=== PATIENT | female | born 1970 | race African-American/Black ===

== ENCOUNTER 2024-10-09 00:05 | Inpatient (IN) | payer OTHER, MEDICARE ==
[~2024-10-09] VITALS: Ht 162.6 cm; Wt 99.8 kg
[2024-10-09] MEDS ORDERED: AMLO10TA59 (01:31)
[2024-10-09] MEDS ORDERED: HYDR25TA4 (01:31)
[2024-10-09] MEDS ORDERED: CLON0.1T14 (01:31)
[2024-10-09] MEDS ORDERED: GLIP10TA11 (01:31)
[2024-10-09] MEDS ORDERED: METF850T (01:31)
[2024-10-09] MEDS ORDERED: SWABABLE VALVE TRANSFER SET EA MC ONE (01:55)
[2024-10-09] MEDS ORDERED: IV NORMAL SALINE 250 ML IV ONE (01:55)
[2024-10-09] MEDS ORDERED: IOHEXOL 300MG/ML 100 ML INFUS..BTL ONE (01:55)
[2024-10-09 02:07] LABS: BASOPHILS # (AUTO) 0.1 K/UL (0.0-0.2); BASOPHILS % (AUTO) 1.4 % (0.0-2.0); EOSINOPHILS # (AUTO) 0.1 K/uL (0.0-0.7); EOSINOPHILS % (AUTO) 1.6 % (0.0-7.0); HEMATOCRIT 33.9 % (31.2-41.9); HEMOGLOBIN 11.1 g/dL (10.9-14.3); LYMPHOCYTES # (AUTO) 2.1 K/uL (0.8-4.8); LYMPHOCYTES % (AUTO) 32.1 % (20.5-51.5); MEAN CORPUSCULAR HEMOGLOBIN 25.1 uug (24.7-32.8); MEAN CORPUSCULAR HGB CONC 33 g/dL (32.3-35.6); MEAN CORPUSCULAR VOLUME 76.3 fL (75.5-95.3); MONOCYTES # (AUTO) 0.6 K/uL (0.1-1.30); MONOCYTES % (AUTO) 9.5 % (0.0-11.0); NEUTROPHILS # (AUTO) 3.6 K/uL (1.8-8.9); NEUTROPHILS % (AUTO) 55.4 % (38.5-71.5); PLATELET COUNT (AUTO) 222 K/uL (179-408); RED BLOOD CELL COUNT(AUTO) 4.44 MIL/uL (3.63-4.92); RED CELL DISTRIBUTION WIDTH 15.9 % (12.3-17.7); WHITE BLOOD COUNT (AUTO) 6.5 K/uL (3.8-11.8)
[2024-10-09 02:45] LABS: ALANINE AMINOTRANSFERASE 35 U/L (14-59); ALBUMIN 3.4 g/dL (3.4-5.0); ALKALINE PHOSPHATASE 136 U/L (50-136); ASPARTATE AMINOTRANSFERASE 13 U/L (15-37); BILIRUBIN,DIRECT 0.1 mg/dL (0.0-0.2); BILIRUBIN,TOTAL 0.1 mg/dL (0.2-1.0); CARBON DIOXIDE 30 mmol/L (21-32); CHLORIDE 102 mmol/L (98-107); CREATININE 0.9 mg/dL (0.6-1.3); GLUCOSE 280 mg/dL (74-106); POTASSIUM 3.1 mmol/L (3.5-5.1); SODIUM SERUM 139 mmol/L (136-145); TOTAL PROTEIN, SERUM 7.2 g/dL (6.4-8.2); UREA NITROGEN, BLOOD 25 mg/dL (7-18)
[2024-10-09 03:54] LABS: *BILIRUBIN,URIN NEGATIVE (NEGATIVE); *BLOOD, URINE NEGATIVE (NEGATIVE); *CLARITY,URINE CLEAR (CLEAR); *COLOR,URINE YELLOW (YELLOW); *KETONES,URINE TRACE (NEGATIVE); *PROTEIN,URINE TRACE (NEGATIVE); *UROBILINOGEN,URINE 0.2 E.U./dl (NORMAL); LEUKOCYTE ESTERASE ,URINE NEGATIVE (NEGATIVE); NITRITE, URINE NEGATIVE (NEGATIVE); PH,URINE 6.5 (5.0-8.0)
[2024-10-09] MEDS ORDERED: ONDANSETRON 4 MG/2 ML VIAL ONE (04:04)
[2024-10-09] MEDS ORDERED: HYDROCORTISONE SOD SUCCINATE 100 MG/2 ML VIAL IV ONE (04:04)
[2024-10-09] MEDS ORDERED: HYDROMORPHONE 1 MG/1 ML DISP.SYRIN ONE ×2 (04:05→05:49)
[2024-10-09] MEDS ORDERED: diphenhydrAMINE 50 MG/1 ML VIAL ONE (04:05)
[2024-10-09 04:07] LABS: *AMPHETAMINE, URINE NEGATIVE (NEGATIVE); *BARBITURATE, URINE NEGATIVE (NEGATIVE); *BENZODIAZEPINE, URINE NEGATIVE (NEGATIVE); *CANNABINOID, URINE NEGATIVE (NEGATIVE); *COCCAINE, URINE NEGATIVE (NEGATIVE); *OPIATE, URINE POSITIVE (NEGATIVE); *PHENCYCLIDINE SCREEN,URINE NEGATIVE (NEGATIVE); FENTANYL, URINE NEGATIVE (NEGATIVE)
[2024-10-09] MEDS: diphenhydrAMINE 50 MG/1 ML VIAL IV ONE (04:09)
[2024-10-09] MEDS: HYDROMORPHONE 1 MG/1 ML DISP.SYRIN IV ONE ×2 (04:09→05:53)
[2024-10-09] MEDS: HYDROCORTISONE SOD SUCCINATE 100 MG/2 ML VIAL IV ONE (04:10)
[2024-10-09] MEDS: ONDANSETRON 4 MG/2 ML VIAL IV ONE (04:10)
[2024-10-09] MEDS ORDERED: FUROSEMIDE 40 MG/4 ML VIAL ONE (04:12)
[2024-10-09 04:16] LABS: UGLUCOSE 3+ (NEGATIVE)
[2024-10-09 04:17] LABS: BACTERIA,URINE FEW /HPF (NONE SEEN); RBC,URINE 0-3 /HPF (0-3); SQUAMOUS EPITHELIAL CELL,UR FEW /HPF (NONE SEEN); WBC,URINE NONE SEEN /HPF (0-3)
[2024-10-09] MEDS: FUROSEMIDE 40 MG/4 ML VIAL IV ONE (04:25)
[2024-10-09] MEDS ORDERED: LORAZEPAM 2 MG/1 ML VIAL ONE (05:31)
[2024-10-09] MEDS: LORAZEPAM 2 MG/1 ML VIAL IV ONE (05:36)
[2024-10-09] MEDS ORDERED: REMEDY ESSENTIAL ZINC PASTE 113 GM TP PRN (05:45)
[2024-10-09] MEDS ORDERED: INSULIN REGULAR, HUMAN 1000 UNIT/10 ML VIAL SQ SCH (06:00)
[2024-10-09] MEDS ORDERED: ATORVASTATIN 40 MG TABLET PO SCH (07:28)
[2024-10-09] MEDS: BLOOD SUGAR DIAGNOSTIC 1 EACH STRIP VI SCH ×2 (08:25→08:42)
[2024-10-09] MEDS: INSULIN REGULAR, HUMAN 1000 UNIT/10 ML VIAL SQ PRN (08:44)
[2024-10-09] MEDS ORDERED: DEXTROSE 50% 50 ML DISP.SYRIN IV PRN (08:45)
[2024-10-09] MEDS: CLOPIDOGREL 75 MG TABLET PO SCH (09:21)
[2024-10-09] MEDS: PANTOPRAZOLE SODIUM 40 MG VIAL IV SCH (09:21)
[2024-10-09] MEDS: ATORVASTATIN 40 MG TABLET PO ONE (09:26)
[2024-10-09] MEDS: POTASSIUM CHLORIDE 20 MEQ TAB.PRT.SR PO ONE (11:47)
[2024-10-09] MEDS ORDERED: AMLO10TA59 PO (11:55)
[2024-10-09] MEDS ORDERED: CLON0.1T PO (11:56)
[2024-10-09] MEDS ORDERED: GLIP10TA11 PO (11:56)
[2024-10-09] MEDS ORDERED: METF-441 PO (11:57)
[2024-10-09] MEDS ORDERED: HYDR25TA4 PO (11:57)
[2024-10-09] MEDS ORDERED: INSU100V10 SQ (11:58)
[2024-10-09] MEDS ORDERED: INSU100V11 SQ (11:58)
[2024-10-09] MEDS ORDERED: ALBU8HFA4 INH (11:59)
[2024-10-09 12:00] VITALS: BP 124/76; TEMP 98.5; O2SAT 99
[2024-10-09] MEDS ORDERED: LORA-259 PO (12:00)
[2024-10-09] MEDS ORDERED: DIPH25CA83 PO (12:01)
[2024-10-09] MEDS ORDERED: METO-358 PO (12:02)
[2024-10-09] MEDS ORDERED: LORA10CA PO (12:02)
[2024-10-09] MEDS ORDERED: HYDR50TA68 PO (12:03)
[2024-10-09] MEDS ORDERED: NYST15CR TP (12:04)
[2024-10-09] MEDS ORDERED: LIDO30CR47 TP (12:05)
[2024-10-09] MEDS: HYDROCODONE/APAP 10-325 MG TABLET PO PRN (12:06)
[2024-10-09] MEDS: ACETAMINOPHEN 325 MG TABLET PO PRN (15:19)
[2024-10-09] MEDS: LORAZEPAM 1 MG TABLET PO PRN (15:20)
[2024-10-09 15:55] LABS: BASOPHILS % (AUTO) 0.5 % (0.0-2.0); DIFFERENTIAL COMMENT 0; EOSINOPHILS % (AUTO) 0.3 % (0.0-7.0); HEMATOCRIT 30.9 % (31.2-41.9); HEMOGLOBIN 9.9 g/dL (10.9-14.3); LYMPHOCYTES # (AUTO) 1.8 K/uL (0.8-4.8); LYMPHOCYTES % (AUTO) 26.1 % (20.5-51.5); MEAN CORPUSCULAR HEMOGLOBIN 24.6 uug (24.7-32.8); MEAN CORPUSCULAR HGB CONC 32 g/dL (32.3-35.6); MEAN CORPUSCULAR VOLUME 76.6 fL (75.5-95.3); MONOCYTES # (AUTO) 0.7 K/uL (0.1-1.30); MONOCYTES % (AUTO) 10.2 % (0.0-11.0); NEUTROPHILS # (AUTO) 4.3 K/uL (1.8-8.9); NEUTROPHILS % (AUTO) 62.9 % (38.5-71.5); PLATELET COUNT (AUTO) 211 K/uL (179-408); RED BLOOD CELL COUNT(AUTO) 4.04 MIL/uL (3.63-4.92); WHITE BLOOD COUNT (AUTO) 6.8 K/uL (3.8-11.8)
[2024-10-09 15:58] LABS: CALCIUM 9.1 mg/dL (8.5-10.1); CREATININE 0.9 mg/dL (0.6-1.3); MAGNESIUM 1.6 mg/dL (1.8-2.4); PHOSPHOROUS 2.6 mg/dL (2.5-4.9); POTASSIUM 3.3 mmol/L (3.5-5.1)
[2024-10-09] MEDS ORDERED: ALBUTEROL SULFATE 8 GM HFA.AER.AD INH PRN (16:00)
[2024-10-09 16:11] VITALS: BP 159/90; TEMP 98.3; O2SAT 97
[2024-10-09] MEDS ORDERED: ALBUTEROL SULFATE 2.5 MG/3 ML NEBU NEB PRN (16:15)
[2024-10-09] MEDS: diphenhydrAMINE 25 MG CAP PO PRN (16:57)
[2024-10-09] MEDS: METFORMIN HCL 850 MG TABLET PO SCH (16:58)
[2024-10-09] MEDS: CLONIDINE HCL 0.1 MG TABLET PO SCH (16:59)
[2024-10-09] MEDS: NYSTATIN CREAM 30 GM TUBE TP SCH (16:59)
[2024-10-09 20:28] VITALS: BP 142/69; TEMP 98.2; O2SAT 98
[2024-10-10] MEDS: MORPHINE SULFATE 2 MG/1 ML DISP.SYRIN IV PRN (02:08)
[2024-10-10 04:08] VITALS: BP 189/71; TEMP 98.2; O2SAT 99
[2024-10-10] MEDS: INSULIN GLARGINE,HUM 300 UNITS/3 ML CARTRIDGE SQ SCH (06:32)
[2024-10-10 07:02] LABS: BASOPHILS % (AUTO) 0.4 % (0.0-2.0); EOSINOPHILS # (AUTO) 0.1 K/uL (0.0-0.7); EOSINOPHILS % (AUTO) 1.2 % (0.0-7.0); HEMATOCRIT 30.3 % (31.2-41.9); HEMOGLOBIN 9.9 g/dL (10.9-14.3); LYMPHOCYTES # (AUTO) 1.6 K/uL (0.8-4.8); LYMPHOCYTES % (AUTO) 31.9 % (20.5-51.5); MEAN CORPUSCULAR HGB CONC 33 g/dL (32.3-35.6); MEAN CORPUSCULAR VOLUME 76.9 fL (75.5-95.3); MONOCYTES # (AUTO) 0.5 K/uL (0.1-1.30); MONOCYTES % (AUTO) 10.4 % (0.0-11.0); NEUTROPHILS # (AUTO) 2.9 K/uL (1.8-8.9); NEUTROPHILS % (AUTO) 56.1 % (38.5-71.5); PLATELET COUNT (AUTO) 201 K/uL (179-408); RED BLOOD CELL COUNT(AUTO) 3.95 MIL/uL (3.63-4.92); RED CELL DISTRIBUTION WIDTH 15.9 % (12.3-17.7); WHITE BLOOD COUNT (AUTO) 5.2 K/uL (3.8-11.8)
[2024-10-10 07:05] LABS: DIFFERENTIAL COMMENT 1
[2024-10-10 07:11] LABS: CALCIUM 8.6 mg/dL (8.5-10.1); CREATININE 0.7 mg/dL (0.6-1.3); MAGNESIUM 1.5 mg/dL (1.8-2.4); PHOSPHOROUS 2.1 mg/dL (2.5-4.9); POTASSIUM 3.2 mmol/L (3.5-5.1)
[2024-10-10 07:30] VITALS: BP 168/88; TEMP 98.4; O2SAT 99
[2024-10-10] MEDS: hydrALAZINE HCL 50 MG TABLET PO SCH (09:04)
[2024-10-10] MEDS: POTASSIUM CHLORIDE 20 MEQ TAB.PRT.SR PO ONE (09:05)
[2024-10-10] MEDS: AMLODIPINE 10 MG TABLET PO SCH (09:06)
[2024-10-10] MEDS: METOPROLOL SUCCINATE XL 50 MG TAB.SR.24H PO SCH (09:06)
[2024-10-10] MEDS: MAGNESIUM SULFATE/D5W 100 ML IV SCH (09:08)
[2024-10-10 11:16] VITALS: BP 141/73; TEMP 98.2; O2SAT 94
[2024-10-10 15:03] VITALS: BP 121/59; TEMP 98.4; O2SAT 99
[2024-10-10] MEDS: NEUTRA PHOS PACKET PO ONE (15:48)
[2024-10-10] MEDS: ONDANSETRON 4 MG/2 ML VIAL IV PRN (17:43)
[2024-10-10 20:00] VITALS: BP 98/59; TEMP 97.5; O2SAT 100
[2024-10-10] MEDS: ATORVASTATIN 40 MG TABLET PO SCH (20:39)
[2024-10-11] VITALS: BP 161/86; TEMP 98; O2SAT 100
[2024-10-11 04:00] VITALS: BP 166/83; TEMP 98.4; O2SAT 98
[2024-10-11] MEDS: PANTOPRAZOLE SODIUM 40 MG TABLET.DR PO SCH (06:36)
[2024-10-11 06:49] LABS: BASOPHILS % (AUTO) 0.8 % (0.0-2.0); EOSINOPHILS # (AUTO) 0.1 K/uL (0.0-0.7); EOSINOPHILS % (AUTO) 1.8 % (0.0-7.0); HEMATOCRIT 34.1 % (31.2-41.9); HEMOGLOBIN 11.3 g/dL (10.9-14.3); LYMPHOCYTES # (AUTO) 1.9 K/uL (0.8-4.8); LYMPHOCYTES % (AUTO) 32.3 % (20.5-51.5); MEAN CORPUSCULAR HEMOGLOBIN 25.4 uug (24.7-32.8); MEAN CORPUSCULAR HGB CONC 33 g/dL (32.3-35.6); MEAN CORPUSCULAR VOLUME 76.8 fL (75.5-95.3); MONOCYTES # (AUTO) 0.4 K/uL (0.1-1.30); MONOCYTES % (AUTO) 6.7 % (0.0-11.0); NEUTROPHILS # (AUTO) 3.5 K/uL (1.8-8.9); NEUTROPHILS % (AUTO) 58.4 % (38.5-71.5); PLATELET COUNT (AUTO) 243 K/uL (179-408); RED BLOOD CELL COUNT(AUTO) 4.44 MIL/uL (3.63-4.92); RED CELL DISTRIBUTION WIDTH 16.3 % (12.3-17.7); WHITE BLOOD COUNT (AUTO) 5.9 K/uL (3.8-11.8)
[2024-10-11 07:01] LABS: CALCIUM 9.2 mg/dL (8.5-10.1); CREATININE 0.9 mg/dL (0.6-1.3); MAGNESIUM 1.8 mg/dL (1.8-2.4); PHOSPHOROUS 2.9 mg/dL (2.5-4.9); POTASSIUM 3.8 mmol/L (3.5-5.1)
[2024-10-11 07:03] LABS: DIFFERENTIAL COMMENT 1
[2024-10-11 07:48] VITALS: BP 123/90; TEMP 98.2; O2SAT 100
[2024-10-11] MEDS ORDERED: ATOR40TA PO (10:27)
[2024-10-11] MEDS ORDERED: CLOP75TA33 PO (10:27)
[2024-10-11 11:01] VITALS: BP 123/90; TEMP 97.6; O2SAT 100
[2024-10-11] MEDS: MORPHINE SULFATE 2 MG/1 ML DISP.SYRIN IV PRN (11:44)
[2024-10-11] MEDS: diphenhydrAMINE 50 MG/1 ML VIAL IV PRN (13:53)
[2024-10-11 15:10] VITALS: BP 143/84; TEMP 97.5; O2SAT 99
[2024-10-11 19:30] VITALS: BP 127/64; TEMP 97.8; O2SAT 98
[2024-10-11] MEDS: LOPERAMIDE HCL 2 MG CAPSULE PO PRN (20:55)
[2024-10-12 08:18] VITALS: BP 189/89; TEMP 98.4; O2SAT 100
[2024-10-12] MEDS ORDERED: MORPHINE SULFATE 4 MG/1 ML DISP.SYRIN IV PRN (14:00)
[2024-10-12] MEDS ORDERED: HYDR-3980 PO (14:43)
[2024-10-12 15:35] VITALS: BP 141/74; TEMP 97.6; O2SAT 100
[2024-10-13 07:49] VITALS: BP 183/96; TEMP 98.5; O2SAT 99
[2024-10-13 08:11] VITALS: BP 183/96
== END 2024-10-13 13:25 | disposition home or self-care (01) | DRG 47 ==
LOC: EDBD 00:20 → ER 00:20 → TELE3 07:20
PROVIDERS: ADMIT Nurse Practitioner Family; ATTEND Internal Medicine
PROC: 06HY33Z Insertion of Infusion Device into Lower Vein, Percutaneous Approach (ICD-10-PCS; principal; 2024-10-09)
DX: G45.9 Transient cerebral ischemic attack, unspecified (principal); D68.59 Other primary thrombophilia; I50.9 Heart failure, unspecified; I11.0 Hypertensive heart disease with heart failure; E04.2 Nontoxic multinodular goiter; E66.01 Morbid (severe) obesity due to excess calories; F41.9 Anxiety disorder, unspecified; R29.810 Facial weakness; Z68.37 Body mass index [BMI] 37.0-37.9, adult; G89.29 Other chronic pain; I25.2 Old myocardial infarction; I25.10 Atherosclerotic heart disease of native coronary artery without angina pectoris; Z95.5 Presence of coronary angioplasty implant and graft; Z79.02 Long term (current) use of antithrombotics/antiplatelets; R29.709 NIHSS score 9; Z88.6 Allergy status to analgesic agent; E87.6 Hypokalemia; F11.90 Opioid use, unspecified, uncomplicated; Z86.73 Personal history of transient ischemic attack (TIA), and cerebral infarction without residual deficits; F32.A Depression, unspecified; E11.65 Type 2 diabetes mellitus with hyperglycemia; Z74.09 Other reduced mobility
CPT/HCPCS: 36415; 70450; 70496; 71045; 83735; 84100; 84484; 85025; 85730; A4606; A4663; G0378; J1171; J1200; J1720; J1815; J1940; J2060; J2270; J2405; J2470; J3475; Q0163; Q9967

== ENCOUNTER 2025-01-28 13:13 | Inpatient (IN) | payer MEDICARE, OTHER ==
[~2025-01-28] VITALS: Ht 162.6 cm; Wt 102.3 kg
[~2025-01-28 13:13] MED LIST: ALBU8HFA4 INH; AMLO10TA59 PO; CLON0.1T PO; DIPH25CA83 PO; GLIP10TA11 PO; HYDR25TA4 PO; HYDR50TA68 PO; INSU100V10 SQ; INSU100V11 SQ; LIDO30CR47 TP; LORA-259 PO; LORA10CA PO; METF-441 PO; METO-358 PO; NYST15CR TP
[2025-01-28 14:12] LABS: BASOPHILS % (AUTO) 0.4 % (0.0-2.0); EOSINOPHILS # (AUTO) 0.1 K/uL (0.0-0.7); EOSINOPHILS % (AUTO) 1.9 % (0.0-7.0); HEMATOCRIT 32.5 % (31.2-41.9); HEMOGLOBIN 10.3 g/dL (10.9-14.3); LYMPHOCYTES # (AUTO) 1.2 K/uL (0.8-4.8); LYMPHOCYTES % (AUTO) 22.3 % (20.5-51.5); MEAN CORPUSCULAR HEMOGLOBIN 24.5 uug (24.7-32.8); MEAN CORPUSCULAR HGB CONC 32 g/dL (32.3-35.6); MEAN CORPUSCULAR VOLUME 77.2 fL (75.5-95.3); MONOCYTES # (AUTO) 0.6 K/uL (0.1-1.30); MONOCYTES % (AUTO) 10.4 % (0.0-11.0); NEUTROPHILS # (AUTO) 3.5 K/uL (1.8-8.9); PLATELET COUNT (AUTO) 153 K/uL (179-408); RED BLOOD CELL COUNT(AUTO) 4.21 MIL/uL (3.63-4.92); RED CELL DISTRIBUTION WIDTH 14.5 % (12.3-17.7); WHITE BLOOD COUNT (AUTO) 5.4 K/uL (3.8-11.8)
[2025-01-28 14:13] LABS: DIFFERENTIAL COMMENT 1
[2025-01-28 14:17] LABS: CALCIUM 8.8 mg/dL (8.5-10.1); CARBON DIOXIDE 25 mmol/L (21-32); CHLORIDE 108 mmol/L (98-107); CREATININE 0.7 mg/dL (0.6-1.3); GLUCOSE 212 mg/dL (74-106); POTASSIUM 3.3 mmol/L (3.5-5.1); SODIUM SERUM 142 mmol/L (136-145); UREA NITROGEN, BLOOD 25 mg/dL (7-18)
[2025-01-28 14:29] LABS: ALANINE AMINOTRANSFERASE 31 U/L (14-59); ALBUMIN 2.8 g/dL (3.4-5.0); ALKALINE PHOSPHATASE 97 U/L (50-136); ASPARTATE AMINOTRANSFERASE 20 U/L (15-37); BILIRUBIN,DIRECT 0.1 mg/dL (0.0-0.2); BILIRUBIN,TOTAL 0.3 mg/dL (0.2-1.0); NT-PRO BNP 261 pg/mL (0-125); TOTAL PROTEIN, SERUM 5.9 g/dL (6.4-8.2)
[2025-01-28] MEDS ORDERED: HYDROCODONE/APAP 10-325 MG TABLET ONE (15:15)
[2025-01-28] MEDS: HYDROCODONE/APAP 10-325 MG TABLET PO ONE (15:17)
[2025-01-28 16:21] LABS: IRON, SERUM 23 ug/dL (50-175)
[2025-01-28] MEDS ORDERED: POTASSIUM BICARBONATE/CIT AC 25 MEQ TABLET.EFF ONE (17:09)
[2025-01-28] MEDS ORDERED: FUROSEMIDE 20 MG/2 ML VIAL ONE (17:09)
[2025-01-28] MEDS: FUROSEMIDE 20 MG/2 ML VIAL IV ONE (17:16)
[2025-01-28] MEDS: POTASSIUM BICARBONATE/CIT AC 25 MEQ TABLET.EFF PO ONE (17:16)
[2025-01-28] MEDS ORDERED: CLONIDINE HCL 0.2 MG TABLET ONE (17:49)
[2025-01-28] MEDS: CLONIDINE HCL 0.2 MG TABLET PO ONE (17:51)
[2025-01-28] MEDS: FUROSEMIDE 40 MG/4 ML VIAL IV SCH (21:15)
[2025-01-28] MEDS: ENOXAPARIN SODIUM 40 MG/0.4 ML DISP.SYRIN SQ SCH (21:15)
[2025-01-28] MEDS ORDERED: REMEDY ESSENTIAL ZINC PASTE 113 GM TP PRN (21:15)
[2025-01-29] MEDS: HYDROCODONE/APAP 5-325MG TABLET PO PRN (00:26)
[2025-01-29] MEDS: ZOLPIDEM 5 MG TABLET PO PRN (00:27)
[2025-01-29] MEDS: hydrALAZINE HCL 20 MG/1 ML VIAL IV PRN (04:48)
[2025-01-29] MEDS: PANTOPRAZOLE SODIUM 40 MG TABLET.DR PO SCH (06:39)
[2025-01-29 07:18] LABS: BASOPHILS % (AUTO) 0.6 % (0.0-2.0); EOSINOPHILS % (AUTO) 0.7 % (0.0-7.0); HEMATOCRIT 33.3 % (31.2-41.9); HEMOGLOBIN 10.6 g/dL (10.9-14.3); LYMPHOCYTES # (AUTO) 0.9 K/uL (0.8-4.8); MEAN CORPUSCULAR HEMOGLOBIN 24.5 uug (24.7-32.8); MEAN CORPUSCULAR HGB CONC 32 g/dL (32.3-35.6); MONOCYTES # (AUTO) 0.3 K/uL (0.1-1.30); MONOCYTES % (AUTO) 5.7 % (0.0-11.0); NEUTROPHILS # (AUTO) 4.5 K/uL (1.8-8.9); PLATELET COUNT (AUTO) 175 K/uL (179-408); RED BLOOD CELL COUNT(AUTO) 4.32 MIL/uL (3.63-4.92); RED CELL DISTRIBUTION WIDTH 14.6 % (12.3-17.7); WHITE BLOOD COUNT (AUTO) 5.9 K/uL (3.8-11.8)
[2025-01-29 07:27] LABS: DIFFERENTIAL COMMENT 1
[2025-01-29 07:41] LABS: CALCIUM 8.9 mg/dL (8.5-10.1); CREATININE 0.7 mg/dL (0.6-1.3); MAGNESIUM 1.8 mg/dL (1.8-2.4); PHOSPHOROUS 3.2 mg/dL (2.5-4.9); POTASSIUM 3.6 mmol/L (3.5-5.1)
[2025-01-29 08:10] LABS: THYROID STIMULATING HORMONE 0.59 mIU/mL (0.358-3.740)
[2025-01-29] MEDS: FUROSEMIDE 40 MG/4 ML VIAL IV SCH (09:00)
[2025-01-29] MEDS ORDERED: ALBUTEROL SULFATE 8 GM HFA.AER.AD INH PRN (11:30)
[2025-01-29 11:33] VITALS: BP 123/62; TEMP 97.7; O2SAT 99
[2025-01-29] MEDS ORDERED: ALBUTEROL SULFATE 2.5 MG/3 ML NEBU NEB PRN (11:45)
[2025-01-29] MEDS: AMLODIPINE 10 MG TABLET PO SCH (12:52)
[2025-01-29] MEDS: HYDROCHLOROTHIAZIDE 25 MG TABLET PO SCH (12:52)
[2025-01-29] MEDS: METOPROLOL SUCCINATE XL 50 MG TAB.SR.24H PO SCH (12:52)
[2025-01-29] MEDS: diphenhydrAMINE 25 MG CAP PO PRN (12:53)
[2025-01-29] MEDS: CLONIDINE HCL 0.1 MG TABLET PO SCH (15:24)
[2025-01-29] MEDS: LORAZEPAM 1 MG TABLET PO PRN (15:27)
[2025-01-29 15:41] VITALS: BP 128/60; TEMP 97.4; O2SAT 98
[2025-01-29] MEDS: METFORMIN HCL 850 MG TABLET PO SCH (18:28)
[2025-01-29] MEDS: glipiZIDE 10 MG TABLET PO SCH (18:28)
[2025-01-29] MEDS ORDERED: DEXTROSE 50% 50 ML DISP.SYRIN IV PRN (21:15)
[2025-01-30 00:28] VITALS: BP 135/87; TEMP 98; O2SAT 100
[2025-01-30] MEDS: ACETAMINOPHEN 325 MG TABLET PO PRN (04:18)
[2025-01-30 04:52] VITALS: BP 110/69; TEMP 98; O2SAT 96
[2025-01-30 06:09] VITALS: BP 168/77
[2025-01-30] MEDS: BLOOD SUGAR DIAGNOSTIC 1 EACH STRIP VI SCH (06:35)
[2025-01-30 07:21] VITALS: BP 157/73; TEMP 98.2; O2SAT 94
[2025-01-30] MEDS: LORATADINE 10 MG TABLET PO SCH (08:41)
[2025-01-30] MEDS: INSULIN REGULAR, HUMAN 1000 UNIT/10 ML VIAL SQ PRN (08:49)
[2025-01-30 11:38] VITALS: BP 151/79; TEMP 98; O2SAT 99
[2025-01-30 13:59] LABS: THYROID STIMULATING HORMONE 1.108 mIU/mL (0.358-3.740)
[2025-01-30 15:51] VITALS: BP 132/65; TEMP 98.6; O2SAT 100
[2025-01-30] MEDS: HYDROMORPHONE 1 MG/1 ML DISP.SYRIN IV PRN (17:02)
[2025-01-30] MEDS: diphenhydrAMINE 50 MG/1 ML VIAL IV PRN (20:12)
[2025-01-30] MEDS: ONDANSETRON 4 MG/2 ML VIAL IV PRN (20:12)
[2025-01-31 01:10] VITALS: BP 143/65; TEMP 98.2; O2SAT 100
[2025-01-31] MEDS: diphenhydrAMINE 50 MG/1 ML VIAL IV ONE (03:42)
[2025-01-31 07:06] VITALS: BP 191/73; TEMP 98.2; O2SAT 99
[2025-01-31 07:40] VITALS: BP 160/80; TEMP 98.5; O2SAT 98
[2025-01-31] MEDS: hydrALAZINE HCL 50 MG TABLET PO SCH (09:18)
[2025-01-31 11:50] VITALS: BP 114/73; TEMP 97.7; O2SAT 99
[2025-01-31] MEDS: CLOPIDOGREL 75 MG TABLET PO SCH (12:19)
[2025-01-31] MEDS: diphenhydrAMINE 50 MG/1 ML VIAL IV PRN (15:21)
[2025-01-31] MEDS: FAMOTIDINE 20 MG TABLET PO SCH (15:23)
[2025-01-31] MEDS: DOCUSATE SODIUM 100 MG CAPSULE PO SCH (15:23)
[2025-01-31 16:08] VITALS: BP 149/73; TEMP 97.7; O2SAT 98
[2025-01-31 19:35] VITALS: BP 134/78; TEMP 98; O2SAT 100
[2025-01-31] MEDS: ATORVASTATIN 40 MG TABLET PO SCH (21:27)
[2025-02-01] MEDS: MAGNESIUM HYDROXIDE 30 ML LIQUID UDC PO PRN (05:15)
[2025-02-01 05:34] VITALS: BP 152/78; TEMP 97.9; O2SAT 98
[2025-02-01 08:00] VITALS: BP 152/74; TEMP 97.9; O2SAT 99
[2025-02-01 11:15] VITALS: BP 127/81; TEMP 97.6; O2SAT 96
[2025-02-01] MEDS ORDERED: Blood Sugar Diagnostic VI (14:47)
[2025-02-01] MEDS ORDERED: DEXT50DI8 IV (14:47)
[2025-02-01] MEDS ORDERED: DOCU-141 PO (14:47)
[2025-02-01] MEDS ORDERED: CLOP75TA33 PO (14:47)
[2025-02-01] MEDS ORDERED: INSU100V28 SQ ×2 (14:47)
[2025-02-01] MEDS ORDERED: CLON0.1T PO (14:47)
[2025-02-01] MEDS ORDERED: HYDR2TAB7 PO (14:47)
[2025-02-01] MEDS ORDERED: MAGN400O6 PO (14:47)
[2025-02-01] MEDS ORDERED: MENT113O TP (14:47)
[2025-02-01] MEDS ORDERED: DIPH25CA83 PO (14:47)
[2025-02-01] MEDS ORDERED: MULT-1045 PO (14:47)
[2025-02-01] MEDS ORDERED: ATOR40TA PO (14:47)
[2025-02-01] MEDS ORDERED: ZOLP5TAB2 PO (14:47)
[2025-02-01 15:41] VITALS: BP 154/67; TEMP 98.7; O2SAT 99
[2025-02-01] MEDS: INSULIN REGULAR, HUMAN 300 UNITS/3 ML VIAL SQ PRN (20:36)
[2025-02-01 23:25] VITALS: BP 102/56; TEMP 97.9; O2SAT 98
[2025-02-02 06:49] VITALS: BP 124/69; TEMP 98; O2SAT 98
[2025-02-02 08:00] VITALS: BP 142/72; TEMP 98.5; O2SAT 96
[2025-02-02 10:39] VITALS: BP 152/80; TEMP 99; O2SAT 98
[2025-02-02 19:33] VITALS: BP 152/81; TEMP 97.9; O2SAT 96
[2025-02-03 06:36] VITALS: BP 127/73; TEMP 98.3; O2SAT 98
[2025-02-03 11:16] VITALS: BP 122/58; TEMP 98.7; O2SAT 98
[2025-02-03 15:30] VITALS: BP 140/75; TEMP 98.3; O2SAT 100
[2025-02-03 21:50] VITALS: BP 142/72; TEMP 97.8
[2025-02-04 06:47] VITALS: BP 140/89; TEMP 99; O2SAT 99
[2025-02-04 09:05] VITALS: BP 152/93
== END 2025-02-04 12:35 | disposition home or self-care (01) | DRG 291 ==
LOC: ER 13:13 → TELE3 14:30 → UNDOADMIN 14:30 → MEDSURG3 01-31 08:58
PROVIDERS: ATTEND Internal Medicine
DX: I11.0 Hypertensive heart disease with heart failure (principal); I50.33 Acute on chronic diastolic (congestive) heart failure; G45.9 Transient cerebral ischemic attack, unspecified; D68.59 Other primary thrombophilia; E44.0 Moderate protein-calorie malnutrition; I25.10 Atherosclerotic heart disease of native coronary artery without angina pectoris; Z95.5 Presence of coronary angioplasty implant and graft; I25.2 Old myocardial infarction; E66.9 Obesity, unspecified; Z68.38 Body mass index [BMI] 38.0-38.9, adult; E11.65 Type 2 diabetes mellitus with hyperglycemia; D69.6 Thrombocytopenia, unspecified; E88.09 Other disorders of plasma-protein metabolism, not elsewhere classified; E87.6 Hypokalemia; E78.5 Hyperlipidemia, unspecified; Z86.73 Personal history of transient ischemic attack (TIA), and cerebral infarction without residual deficits; Z88.6 Allergy status to analgesic agent; Z79.899 Other long term (current) drug therapy; Z74.09 Other reduced mobility; Z79.84 Long term (current) use of oral hypoglycemic drugs; Z79.4 Long term (current) use of insulin; E04.2 Nontoxic multinodular goiter; Z75.1 Person awaiting admission to adequate facility elsewhere
CPT/HCPCS: 36415; 70450; 71045; 83550; 83735; 83921; 84100; 84443; 84484; 85025; 85730; 93005; A4606; A4663; G0378; J0360; J1171; J1200; J1650; J1815; J1938; J2405; Q0163

== ENCOUNTER 2025-04-18 22:11 | Inpatient (IN) | payer MEDICARE, OTHER ==
[~2025-04-18] VITALS: Ht 165.1 cm; Wt 81.6 kg
[~2025-04-18 22:11] MED LIST changes: +ATOR40TA PO; +Blood Sugar Diagnostic VI; +CLOP75TA33 PO; +DEXT50DI8 IV; +DOCU-141 PO; +HYDR2TAB7 PO; -HYDR50TA68 PO; -INSU100V11 SQ; +INSU100V28 SQ; +MAGN400O6 PO; +MENT113O TP; +MULT-1045 PO; -NYST15CR TP; +ZOLP5TAB2 PO
[2025-04-18 23:00] LABS: BASOPHILS % (AUTO) 0.4 % (0.0-2.0); EOSINOPHILS # (AUTO) 0.1 K/uL (0.0-0.7); EOSINOPHILS % (AUTO) 0.8 % (0.0-7.0); HEMATOCRIT 37.1 % (31.2-41.9); HEMOGLOBIN 11.9 g/dL (10.9-14.3); LYMPHOCYTES # (AUTO) 1.7 K/uL (0.8-4.8); LYMPHOCYTES % (AUTO) 18.9 % (20.5-51.5); MEAN CORPUSCULAR HEMOGLOBIN 25.1 uug (24.7-32.8); MEAN CORPUSCULAR HGB CONC 32 g/dL (32.3-35.6); MEAN CORPUSCULAR VOLUME 78.2 fL (75.5-95.3); MONOCYTES # (AUTO) 0.8 K/uL (0.1-1.30); MONOCYTES % (AUTO) 8.2 % (0.0-11.0); NEUTROPHILS # (AUTO) 6.6 K/uL (1.8-8.9); NEUTROPHILS % (AUTO) 71.7 % (38.5-71.5); PLATELET COUNT (AUTO) 243 K/uL (179-408); RED BLOOD CELL COUNT(AUTO) 4.75 MIL/uL (3.63-4.92); RED CELL DISTRIBUTION WIDTH 16.7 % (12.3-17.7); WHITE BLOOD COUNT (AUTO) 9.2 K/uL (3.8-11.8)
[2025-04-18 23:01] LABS: DIFFERENTIAL COMMENT 1
[2025-04-18 23:06] LABS: CALCIUM 9.3 mg/dL (8.5-10.1); CARBON DIOXIDE 27 mmol/L (21-32); CHLORIDE 104 mmol/L (98-107); GLUCOSE 173 mg/dL (74-106); SODIUM SERUM 142 mmol/L (136-145); UREA NITROGEN, BLOOD 19 mg/dL (7-18)
[2025-04-18 23:12] LABS: ALANINE AMINOTRANSFERASE 26 U/L (14-59); ALBUMIN 3.6 g/dL (3.4-5.0); ALKALINE PHOSPHATASE 113 U/L (50-136); ASPARTATE AMINOTRANSFERASE 15 U/L (15-37); BILIRUBIN,DIRECT 0.2 mg/dL (0.0-0.2); BILIRUBIN,TOTAL 0.3 mg/dL (0.2-1.0); TOTAL PROTEIN, SERUM 7.2 g/dL (6.4-8.2)
[2025-04-19] MEDS ORDERED: hydrALAZINE HCL 20 MG/1 ML VIAL IV ONE (00:30)
[2025-04-19] MEDS ORDERED: DOXYCYCLINE HYCLATE 100 MG TABLET ONE (00:32)
[2025-04-19] MEDS ORDERED: hydrALAZINE HCL 10 MG TABLET ONE (00:36)
[2025-04-19] MEDS: DOXYCYCLINE HYCLATE 100 MG TABLET PO ONE (00:43)
[2025-04-19] MEDS: hydrALAZINE HCL 10 MG TABLET PO ONE (00:44)
[2025-04-19] MEDS ORDERED: ALBUTEROL SULFATE 8 GM HFA.AER.AD INH PRN (01:15)
[2025-04-19] MEDS ORDERED: ALBUTEROL SULFATE 2.5 MG/3 ML NEBU INH PRN (02:00)
[2025-04-19] MEDS: HYDROCODONE/APAP 5-325MG TABLET PO PRN (04:20)
[2025-04-19] MEDS: PANTOPRAZOLE SODIUM 40 MG TABLET.DR PO SCH (06:35)
[2025-04-19] MEDS: BLOOD SUGAR DIAGNOSTIC 1 EACH STRIP VI SCH ×2 (06:35→08:49)
[2025-04-19 06:52] LABS: ALBUMIN 3.5 g/dL (3.4-5.0); BILIRUBIN,TOTAL 0.5 mg/dL (0.2-1.0); CALCIUM 9.6 mg/dL (8.5-10.1); POTASSIUM 3.8 mmol/L (3.5-5.1)
[2025-04-19 07:01] LABS: THYROID STIMULATING HORMONE 0.482 mIU/mL (0.358-3.740)
[2025-04-19 07:58] VITALS: BP 198/73; TEMP 98.6; O2SAT 100
[2025-04-19] MEDS ORDERED: DEXTROSE 50% 50 ML DISP.SYRIN IV PRN (08:30)
[2025-04-19] MEDS ORDERED: INSULIN REGULAR, HUMAN 1000 UNIT/10 ML VIAL SQ PRN (08:30)
[2025-04-19] MEDS: MULTIVITAMINS,THERAPEUTIC TABLET PO SCH (08:48)
[2025-04-19] MEDS: DOCUSATE SODIUM 100 MG CAPSULE PO SCH (08:48)
[2025-04-19] MEDS: LORATADINE 10 MG TABLET PO SCH (08:48)
[2025-04-19] MEDS ORDERED: CLOPIDOGREL 75 MG TABLET PO SCH (09:00)
[2025-04-19] MEDS ORDERED: INSU100V SQ (09:16)
[2025-04-19] MEDS ORDERED: CLON0.2T PO (09:16)
[2025-04-19] MEDS: CLOPIDOGREL 75 MG TABLET PO SCH (09:28)
[2025-04-19 12:00] VITALS: BP 208/88; TEMP 99; O2SAT 99
[2025-04-19] MEDS: glipiZIDE 10 MG TABLET PO SCH (12:21)
[2025-04-19] MEDS: METFORMIN HCL 850 MG TABLET PO SCH (12:21)
[2025-04-19] MEDS ORDERED: DOXY100C5 PO (14:18)
[2025-04-19] MEDS ORDERED: ATORVASTATIN 40 MG TABLET PO SCH (21:00)
== END 2025-04-19 15:30 | disposition home or self-care (01) | DRG 57 ==
LOC: ER 22:19 → TELE3 04-19 00:42
PROVIDERS: ATTEND Nurse Practitioner Acute Care
DX: I69.351 Hemiplegia and hemiparesis following cerebral infarction affecting right dominant side (principal); I50.32 Chronic diastolic (congestive) heart failure; L02.411 Cutaneous abscess of right axilla; E44.1 Mild protein-calorie malnutrition; I16.0 Hypertensive urgency; I25.10 Atherosclerotic heart disease of native coronary artery without angina pectoris; Z95.5 Presence of coronary angioplasty implant and graft; E11.65 Type 2 diabetes mellitus with hyperglycemia; E88.09 Other disorders of plasma-protein metabolism, not elsewhere classified; G89.4 Chronic pain syndrome; F11.10 Opioid abuse, uncomplicated; Z76.5 Malingerer [conscious simulation]; I11.0 Hypertensive heart disease with heart failure; I25.2 Old myocardial infarction; Z68.39 Body mass index [BMI] 39.0-39.9, adult; E78.5 Hyperlipidemia, unspecified; E66.01 Morbid (severe) obesity due to excess calories; D50.9 Iron deficiency anemia, unspecified; F32.A Depression, unspecified; F41.9 Anxiety disorder, unspecified; Z79.02 Long term (current) use of antithrombotics/antiplatelets; Z79.899 Other long term (current) drug therapy; Z82.3 Family history of stroke; Z82.49 Family history of ischemic heart disease and other diseases of the circulatory system; Z88.6 Allergy status to analgesic agent; Z79.84 Long term (current) use of oral hypoglycemic drugs; Z86.39 Personal history of other endocrine, nutritional and metabolic disease
CPT/HCPCS: 36415; 70450; 71045; 84443; 84484; 85025; 85730; G0378; J1815